=== PATIENT | female | born 1975 | race Caucasian/White ===

== ENCOUNTER 2018-07-13 17:39 | Emergency (ER) | payer OTHER ==
--- NOTE | 2018-07-13 18:47 | RAD ---
CHEST TWO VIEWS 07/13/18 HISTORY: Cough. COMPARISON: 04/02/17 FINDINGS: The cardiac silhouette and pulmonary vasculature are unremarkable. Mediastinum is midline. No conflue nt air space consolidation, pneumothorax or pleural fluid. IMPRESSION: No active cardiopulmonary abnormalities are demonstrated. POS: BST
== END 2018-07-13 18:43 | disposition home or self-care (01) ==
LOC: SCSER 17:39
DX: J20.9 Acute bronchitis, unspecified (principal)
CPT/HCPCS: 71046

== ENCOUNTER 2018-09-21 08:48 | Emergency (ER) | payer OTHER, SELFPAY ==
[2018-09-21 09:58] LABS: Anion Gap 11 mmol/L (10-20); BUN (Urea Nitrogen) 12 mg/dL (7.0-18.7); Calc. Creatinine Clearance 0 mL/min (70-130); Calcium 8.7 mg/dL (7.8-10.44); Carbon Dioxide 26 mmol/L (22-29); Chloride 106 mmol/L (98-107); Estimated GFR-MDRD Greater than 90; Glucose 80 mg/dL (70-105); Potassium 3.8 mmol/L (3.5-5.1); Sodium 139 mmol/L (136-145)
--- NOTE | 2018-09-21 10:06 | ULT ---
FUltrasound Doppler duplex venous bilateral lower extremities: HISTORY: Bilateral lower extremity edema in 43-year-old female TECHNIQUE: Grayscale, color-flow, and spectral analysis, of major veins of bilateral lower extremities. Compress ion and release applied. FINDINGS: There is normal compressibility and demonstration of blood flow in the bilateral common femoral, prof unda femoral, greater saphenous, femoral, popliteal, and posterior tibial, veins. IMPRESSION: Negative. No deep venous thrombosis in bilateral lower extremities.
[2018-09-21 11:36] LABS: Bilirubin Negative (Negative); Blood, Urine Negative (Negative); Clarity Clear (Clear); Glucose, Urine (Dipstick) Negative (Negative); Leukocyte Negative (Negative); Nitrite Negative (Negative); Protein, Urine (Dipstick) Negative (Neg-Trace); Specific Gravity, Urine 1.015 (1.005-1.030); Urobilinogen 0.2 mg/dL (0.2-1.0); pH, Urine 7.5 (5.0-9.0)
== END 2018-09-21 12:28 | disposition home or self-care (01) ==
LOC: SCSER 08:48
DX: M54.5 Low back pain (principal); R60.9 Edema, unspecified
CPT/HCPCS: 80048; 81003; 83880; 93970